=== PATIENT | female | born 1935 | race Caucasian/White ===

== ENCOUNTER 2016-09-26 14:33 | Emergency (ER) | payer MEDICARE, OTHER ==
[~2016-09-26] VITALS: Ht 165.1 cm; Wt 72.7 kg
[2016-09-26 14:35] VITALS: Ht 165.1 cm; Wt 72.7 kg
[2016-09-26] MEDS ORDERED: SOD CHLORIDE 0.9% 1,000 ML IV STA (16:00)
[2016-09-26 16:24] LABS: ADD SCAN DIFF NO
[2016-09-26 16:25] LABS: BASOPHILS % 0.5 % (0.0-2.0); EOSINOPHILS # 0.1 10^3/ul (0.0-0.5); EOSINOPHILS % 2.2 % (0.0-7.0); HEMATOCRIT 32.5 % (37.0-47.0); HEMOGLOBIN 11.7 g/dl (12.0-16.0); LYMPHOCYTES % 17.2 % (15.0-51.0); MEAN CORPUSCULAR VOLUME 88.8 fl (82.0-101.0); MONOCYTE # 0.4 10^3/ul (0.3-0.9); MONOCYTES % 7.3 % (0.0-11.0); NEUTROPHILS % 72.4 % (39.0-77.0); PLATELET COUNT 197 10^3/UL (140-415); RED BLOOD COUNT 3.66 10^6/ul (4.20-5.40); RED CELL DISTRIBUTION WIDTH 13.7 % (11.5-14.5); WHITE BLOOD COUNT 5.5 10^3/ul (4.8-10.8)
[2016-09-26] MEDS ORDERED: MECL-77 PO (16:37)
[2016-09-26] MEDS ORDERED: CITA20TA6 PO (16:37)
[2016-09-26] MEDS ORDERED: FER325 PO (16:38)
[2016-09-26] MEDS ORDERED: ERGO500037 PO (16:39)
[2016-09-26 16:40] LABS: PROTIME 13.2 Sec (12.2-14.2)
[2016-09-26] MEDS ORDERED: MAGN400T28 PO (16:40)
[2016-09-26] MEDS ORDERED: ATOR40TA68 PO (16:40)
[2016-09-26 16:41] LABS: PARTIAL THROMBOPLASTIN TIME 25.9 Sec (25.0-35.0)
[2016-09-26] MEDS ORDERED: FLUO10CA17 PO ×2 (16:41→16:54)
[2016-09-26 16:42] LABS: ANION GAP 20 (8-16); BLOOD UREA NITROGEN 11 mg/dl (7-20); CARBON DIOXIDE 30 mmol/L (21-31); CHLORIDE 87 mmol/L (97-110); CREATININE 0.53 mg/dl (0.44-1.00); GLUCOSE 178 mg/dl (70-220); POTASSIUM 4.3 mmol/L (3.5-5.1); SODIUM 133 mmol/L (135-144)
[2016-09-26] MEDS ORDERED: FENO145T19 PO (16:42)
[2016-09-26] MEDS ORDERED: DONE10TA7 PO (16:42)
[2016-09-26] MEDS ORDERED: VALS1TAB82 PO (16:43)
[2016-09-26] MEDS ORDERED: NEBI5TAB9 PO (16:43)
[2016-09-26] MEDS ORDERED: DIGO125T PO (16:44)
[2016-09-26] MEDS ORDERED: AMLO5TAB4 PO (16:45)
[2016-09-26] MEDS ORDERED: GLIP-95 PO (16:45)
[2016-09-26] MEDS ORDERED: ASPI-664 PO (16:46)
[2016-09-26] MEDS ORDERED: ESOM40CA PO (16:46)
[2016-09-26] MEDS ORDERED: IBAN150T7 PO (16:47)
[2016-09-26] MEDS ORDERED: ZOLP5TAB7 PO (16:48)
[2016-09-26 16:49] LABS: ADD UMIC NO; UR ASCORBIC ACID NEGATIVE (NEGATIVE); UR BILIRUBIN (Dip) NEGATIVE (NEGATIVE); UR BLOOD (Dip) NEGATIVE (NEGATIVE); UR CLARITY CLEAR (CLEAR); UR COLOR YELLOW (YELLOW); UR GLUCOSE (Dip) NEGATIVE (NEGATIVE); UR KETONES (Dip) NEGATIVE (NEGATIVE); UR LEUKOCYTE ESTERASE (Dip) NEGATIVE Leu/ul (NEGATIVE); UR NITRITE (Dip) NEGATIVE (NEGATIVE); UR SPECIFIC GRAVITY (Dip) 1.012 (1.003-1.030); UR TOTAL PROTEIN (Dip) NEGATIVE (NEGATIVE); UR UROBILINOGEN (Dip) 2+ mg/dL (NEGATIVE)
--- NOTE | 2016-09-26 16:50 | RADRPT ---
PROCEDURE: CT Brain without contrast. CLINICAL INDICATION: Possible stroke. TECHNIQUE: A CT of the brain was performed on a [employer] CT scanner utilizi ng a low dose technique with axial imaging from the skull base through the vertex without IV contras t. Multiplanar reformatted images were made. Images were reviewed on a PACS workstation. The CTDI vol is 44.4 mGy and the DLP is 720 mGycm. One or more of the following dose reduction techniques were used: - Automated exposure control. - Adjustment of the mA and/or kV according to patient size. Use of iterative reconstruction technique. COMPARISON: No. FINDINGS: The fourth ventricle is enlarged. The third and lateral ventricles are enlarged with proportional s ulcal dilatation noted. There are chronic small vessel ischemic changes in the periventricular white matter tracts adjacent to the lateral ventricles. There are atherosclerotic vascular calcification s in the cavernous portions of the internal carotid arteries. The visible portions of the globes and extraocular muscles are normal. The paranasal sinuses are cl ear. The mastoid air cells and internal auditory canals are normal. The bony calvarium is intact. IMPRESSION: 1. Cerebral and cerebellar atrophy with chronic small vessel ischemic changes in the periventricula r white matter tracts adjacent to the lateral ventricles. 2. 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 3. Findings were phoned to Dr. Doty RPTAT:AAJJ Physician Devi Date Time Electronically viewed and signed by Physician Devi on 09/26/2016 16:50 LANNY/
[2016-09-26] MEDS ORDERED: METF1000 PO (16:51)
[2016-09-26] MEDS ORDERED: ALPR0.5T6 PO (16:53)
[2016-09-26] MEDS ORDERED: EZET10TA3 PO (16:53)
[2016-09-26 16:59] LABS: TROPONIN-I < 0.012 ng/ml (0.00-0.12)
[2016-09-26] MEDS ORDERED: ASPIRIN 325 MG TAB PO ONE (17:00)
--- NOTE | 2016-09-26 17:08 | RADRPT ---
PROCEDURE: XR Chest. CLINICAL INDICATION: Stroke with weakness. TECHNIQUE: Single frontal view of the chest was obtained. COMPARISON: None FINDINGS: The soft tissues are normal. There are degenerative osteophytes in the thoracic spine with a dextro scoliosis of the mid thoracic spine. The heart, cardiomediastinal silhouette and hilar structures a re normal. The pulmonary vasculature is normal. There are vascular calcifications in the aortic arc h. There is a calcific density projecting through the dome of the right diaphragm which may be the r esult of a granuloma or calcification associated with the anterior right fifth rib. Oblique views o f the ribs can be performed for evaluation if needed. No acute infiltrate is identified. The costo phrenic angles are normal. IMPRESSION: 1. 1.3 cm benign calcification projecting across the dome of the right diaphragm. Precise location and etiology is unclear but this lesion is likely benign and may be the result of a granuloma or chris cification associated with the anterior right fifth rib. 2. Atherosclerosis of the aortic arch. 3. Dextroscoliosis of the mid thoracic spine with secondary osteoarthritic degenerative changes. RPTAT:AAJJ Physician Devi Date Time Electronically viewed and signed by Physician Devi on 09/26/2016 17:08 LANNY/
[2016-09-26 17:13] LABS: BARBITURATES Positive (NEGATIVE)
[2016-09-26 17:14] LABS: BENZODIAZEPINES Positive (NEGATIVE); CANNABINOIDS Negative (NEGATIVE); COCAINE Negative (NEGATIVE); OPIATES Negative (NEGATIVE)
--- NOTE | 2016-09-26 19:48 | ERA ---
ER Documentation Chief Complaint Date/Time DATE: 09/26/16 TIME: 19:46 Chief Complaint Weakness dizziness, and aloc x 3 days HPI Patient is an 81-year-old female with dementia, diabetes, and hypertension who presents "way too weak" per the ER. The patient has had 3-4 days of weakness which is worsening. The patient was unable to even ambulate to the bathroom today which he usually can do. The daughter says this is whole body weakness. The patient called the primary doctor who told her to go to the emergency department. The patient denies pain. There is no rectal bleeding. The patient did have sweating today with minimal exertion. The patient has had no cough and the daughter is unsure if there is any fevers. ROS All systems reviewed and are negative except as per history of present illness. Medications Home Meds Reported Medications Fluoxetine Hcl* (Fluoxetine Hcl*) 10 Mg Capsule, 10 MG PO DAILY, CAP 09/26/16 Ezetimibe* (Zetia*) 10 Mg Tablet, 10 MG PO DAILY, TAB 09/26/16 Alprazolam* (Alprazolam*) 0.5 Mg Tablet, 0.5 MG PO QID Y for ANXIETY, TAB 09/26/16 Metformin Hcl* (Metformin Hcl*) 1,000 Mg Tablet, 1000 MG PO WITH BREAKFAST DINNE , #60 TAB 09/26/16 Zolpidem Tartrate* (Zolpidem Tartrate*) 5 Mg Tablet, 5 MG PO QHS Y for INSOMNIA , #30 TAB 09/26/16 Ibandronate Sodium* (Boniva*) 150 Mg Tablet, 150 MG PO Q28D, TAB 09/26/16 Esomeprazole Mag Trihydrate (Nexium) 40 Mg Capsule.dr, 40 MG PO DAILY, #30 CAP 09/26/16 Aspirin* (Aspirin* EC) 81 Mg Tablet.dr, 81 MG PO DAILY, TAB 09/26/16 Amlodipine Besylate* (Norvasc*) 5 Mg Tablet, 5 MG PO DAILY, TAB 09/26/16 Glipizide* (Glipizide*) 10 Mg Tablet, 10 MG PO AC BREAKFAST DINNER, TAB 09/26/16 Digoxin* (Digitek*) 125 Mcg Tablet, 0.125 MG PO DAILY, TAB 09/26/16 Nebivolol* (Bystolic*) 5 Mg Tab, 5 MG PO DAILY, #30 TAB 09/26/16 Valsartan-Hydrochlorothiazide (Valsartan-HCTZ) 320-25 Mg Tablet, 1 TAB PO DAILY , #30 TAB 09/26/16 Fenofibrate Nanocrystallized* (Fenofibrate*) 145 Mg Tablet, 145 MG PO DAILY, TAB 09/26/16 Donepezil* (Donepezil*) 10 Mg Tablet, 10 MG PO DAILY, #30 TAB 09/26/16 Fluoxetine Hcl* (Fluoxetine Hcl*) 10 Mg Capsule, 10 MG PO DAILY, CAP 09/26/16 Magnesium Oxide* (Magnesium Oxide*) 400 Mg Tablet, 400 MG PO BID, TAB 09/26/16 Atorvastatin* (Atorvastatin*) 40 Mg Tablet, 40 MG PO QHS, #30 TAB 09/26/16 Ergocalciferol (Vitamin D2) (VITAMIN D2) 50,000 Unit Capsule, 57454 UNIT PO Q7D , CAP 09/26/16 Ferrous Sulfate* (Ferrous Sulfate*) 325 Mg Tabec, 325 MG PO TID, TAB 09/26/16 Meclizine Hcl* (Meclizine Hcl*) 25 Mg Tablet, 25 MG PO BID Y for DIZZINESS, TAB 09/26/16 Citalopram Hydrobromide* (Citalopram Hydrobromide*) 20 Mg Tablet, 20 MG PO DAILY , #30 TAB 09/26/16 Allergies Allergies: Coded Allergies: No Known Allergy (Unverified , 09/26/16) PMhx/Soc History of Surgery: No Anesthesia Reaction: No Hx Neurological Disorder: No Hx Respiratory Disorders: No Hx Cardiac Disorders: Yes (htn, hyperlipidemia) Hx Psychiatric Problems: No Hx Miscellaneous Medical Probl: Yes (dm, alzheimers ) Hx Alcohol Use: No Hx Substance Use: No Hx Tobacco Use: No Smoking Status: Never smoker FmHx Family History: diabetes Physical Exam Vitals Vital Signs Date Time Temp Pulse Resp B/P Pulse Ox O2 Delivery O2 Flow Rate FiO2 09/26/16 14:35 98.6 80 132/62 96 Physical Exam Const: No acute distress Head: Atraumatic Eyes: Normal Conjunctiva ENT: Normal External Ears, Nose and Mouth. Neck: Full range of motion..~ No meningismus. Resp: Clear to auscultation bilaterally Cardio: Regular rate and rhythm, no murmurs Abd: Soft, non tender, non distended. Normal bowel sounds Skin: No petechiae or rashes Back: No midline or flank tenderness Ext: No cyanosis, or edema Neur: Awake and alert, cranial nerves II through XII intact, strength equal to the upper and lower extremities bilaterally Psych: Normal Mood and Affect Result Diagram: 09/26/16 1612 09/26/16 1612 Results 24 hrs Laboratory Tests Test 09/26/16 16:12 09/26/16 16:26 White Blood Count 5.510^3/ul Red Blood Count 3.6610^6/ul Hemoglobin 11.7g/dl Hematocrit 32.5% Mean Corpuscular Volume 88.8fl Mean Corpuscular Hemoglobin 32.0pg Mean Corpuscular Hemoglobin Concent 36.0g/dl Red Cell Distribution Width 13.7% Platelet Count 31801^3/UL Mean Platelet Volume 9.0fl Neutrophils % 72.4% Lymphocytes % 17.2% Monocytes % 7.3% Eosinophils % 2.2% Basophils % 0.5% Nucleated Red Blood Cells % 0.0/100WBC Neutrophils # 4.010^3/ul Lymphocytes # 1.010^3/ul Monocytes # 0.410^3/ul Eosinophils # 0.110^3/ul Basophils # 0.010^3/ul Nucleated Red Blood Cells # 0.010^3/ul Prothrombin Time 13.2Sec Prothrombin Time Ratio 1.0 INR International Normalized Ratio 1.00 Activated Partial Thromboplast Time 25.9Sec Sodium Level 133mmol/L Potassium Level 4.3mmol/L Chloride Level 87mmol/L Carbon Dioxide Level 30mmol/L Anion Gap 20 Blood Urea Nitrogen 11mg/dl Creatinine 0.53mg/dl Glucose Level 178mg/dl Hemoglobin A1c 6.6% Lactic Acid Level 4.0mmol/L Calcium Level 10.0mg/dl Troponin I < 0.012ng/ml Urine Color YELLOW Urine Clarity CLEAR Urine pH 7.0 Urine Specific [place] 1.012 Urine Ketones NEGATIVEmg/dL Urine Nitrite NEGATIVEmg/dL Urine Bilirubin NEGATIVEmg/dL Urine Urobilinogen 2+mg/dL Urine Leukocyte Esterase NEGATIVELeu/ul Urine Hemoglobin NEGATIVEmg/dL Urine Glucose NEGATIVEmg/dL Urine Total Protein NEGATIVEmg/dl Urine Opiates Screen Negative Urine Barbiturates Positive Urine Amphetamines Screen Negative Urine Benzodiazepines Screen Positive Urine Cocaine Screen Negative Urine Cannabinoids Negative Current Medications Medications (Trade) Dose Ordered Sig/[place] Route PRN Reason Start Time Stop Time Status Last Admin Dose Admin Sodium Chloride (NS) 1,000 ml @ 1,000 mls/hr Q1H STAT IV 09/26/16 16:00 09/26/16 16:59 DC 09/26/16 16:29 Aspirin (Aspirin) 325 mg ONCE ONCE PO 09/26/16 17:00 09/26/16 17:01 DC 09/26/16 16:56 Procedures/MDM EKG read by me: Rate/Rhythm: Regular rate and rhythm at a rate of 71 Intervals: Normal Impression: No evidence of ischemia or arrhythmia CT brain shows chronic ischemic changes per radiology. PROCEDURE: XR Chest. CLINICAL INDICATION: Stroke with weakness. TECHNIQUE: Single frontal view of the chest was obtained. COMPARISON: None FINDINGS: The soft tissues are normal. There are degenerative osteophytes in the thoracic spine with a dextroscoliosis of the mid thoracic spine. The heart, cardiomediastinal silhouette and hilar structures are normal. The pulmonary vasculature is normal. There are vascular calcifications in the aortic arch. There is a calcific density projecting through the dome of the right diaphragm which may be the result of a granuloma or calcification associated with the anterior right fifth rib. Oblique views of the ribs can be performed for evaluation if needed. No acute infiltrate is identified. The costophrenic angles are normal. IMPRESSION: 1. 1.3 cm benign calcification projecting across the dome of the right diaphragm. Precise location and etiology is unclear but this lesion is likely benign and may be the result of a granuloma or calcification associated with the anterior right fifth rib. 2. Atherosclerosis of the aortic arch. 3. Dextroscoliosis of the mid thoracic spine with secondary osteoarthritic degenerative changes. RPTAT:AAJJ Physician Devi Date Time Electronically viewed and signed by Darrius Cheng Physician on 09/26/2016 17:08 Patient is an 81-year-old female with hypertension, diabetes, and dementia who presents with weakness. I am concerned about possible ischemic stroke and the patient was given aspirin after she passed a swallow evaluation. She is outside the window for TPA as the symptoms started 3-4 days ago. The patient has anemia with a hemoglobin of 11.7 but does not require transfusion. She has mild hyponatremia with a sodium of 133 and was given 1 L of normal saline fluid resuscitation. The patient is capitated to [facility] and I spoke with Dr. Doshi who accepted the patient in transfer. The patient has no sign of significant GI bleed or sepsis at this time. Departure Diagnosis: Primary Impression: Dehydration Additional Impressions: Acute weakness Anemia Qualified Code: D64.9 - Anemia, unspecified type Condition: TERRANCE Hernandez MD Sep 26, 2016 19:48
[2016-09-26] MEDS ORDERED: CITALOPRAM 20 MG TAB PO ONE (21:00)
[2016-09-26 21:42] VITALS: BP 149/66; PULSE 83; RESP 22; TEMP 98.4
== END 2016-09-26 21:53 | disposition left against medical advice (07) ==
LOC: E/R 14:33
DX: E86.0 Dehydration (principal); D64.9 Anemia, unspecified; I10 Essential (primary) hypertension; G30.9 Alzheimer's disease, unspecified; E11.9 Type 2 diabetes mellitus without complications; R07.9 Chest pain, unspecified; R93.0 Abnormal findings on diagnostic imaging of skull and head, not elsewhere classified; Z79.84 Long term (current) use of oral hypoglycemic drugs; Z79.82 Long term (current) use of aspirin
CPT/HCPCS: 36415; 70450; 71010; 80048; 80307; 81003; 83036; 83605; 84484; 85025; 85610; 85730; 99285; J7030; 93005